=== PATIENT | male | born 1940 | race Caucasian/White ===

== ENCOUNTER 2021-05-02 23:10 | Emergency (ER) | payer MEDICARE, OTHER ==
[~2021-05-02] VITALS: Ht 185.4 cm; Wt 88.6 kg
[2021-05-02] MEDS ORDERED: ST. JOSEPH ASPI81 MG PO (23:23)
[2021-05-02] MEDS ORDERED: PRILOSEC OTC20 MG PO (23:23)
[2021-05-03 00:59] VITALS: BP 146/92
== END 2021-05-03 00:59 | disposition home or self-care (01) ==
LOC: ED 23:10
DX: M94.0 Chondrocostal junction syndrome [Tietze] (principal); K21.9 Gastro-esophageal reflux disease without esophagitis; Z79.899 Other long term (current) drug therapy

== ENCOUNTER 2021-06-15 10:03 | Emergency (ER) | payer MEDICARE, OTHER ==
[~2021-06-15] VITALS: Ht 185.4 cm; Wt 86.4 kg
[~2021-06-15 10:03] MED LIST: PRILOSEC OTC20 MG PO; ST. JOSEPH ASPI81 MG PO
[2021-06-15 11:34] LABS: BASO # 0.04 K/mm3 (0.02-0.10); EOS # 0.13 K/mm3 (0.04-0.40); EOS % 2.5 % (0.0-4.0); LYMPH# 0.87 K/mm3 (1.50-4.00); MEAN CELL VOLUME 102 fl (78-100); MEAN CORPUSCULAR HEMOGLOBIN 33 pg (27-31); MEAN CORPUSCULAR HGB CONC 32 g/dL (33-37); MEAN PLATELET VOLUME 10.3 fl (7.4-10.4); MONO # 0.48 K/mm3 (0.20-0.80); NEU # 3.63 K/mm3 (1.40-6.50); PLATELET COUNT 211 K/mm3 (130-400); RED CELL DISTRIBUTION WIDTH 12.7 % (11.5-14.5); WHITE BLOOD COUNT 5.2 K/mm3 (4.8-10.8)
[2021-06-15 11:48] LABS: ALBUMIN 4.2 g/dL (3.4-4.8); POTASSIUM 4.6 mmol/L (3.5-5.1); SODIUM 139 mmol/L (136-145)
[2021-06-15 11:49] LABS: CALCIUM 9.6 mg/dL (8.3-10.5)
[2021-06-15 11:50] LABS: GLUCOSE 122 mg/dL (75-110); TOTAL PROTEIN 7.3 g/dL (6.2-8.1)
[2021-06-15 11:52] LABS: CARBON DIOXIDE 22 mmol/L (23-31); PARTIAL THROMBOPLASTIN TIME 22.2 SECONDS (21.0-32.0); PROTHROMBIN TIME 10.4 SECONDS (9.0-12.0); TOTAL BILIRUBIN 0.9 mg/dL (0.2-1.2)
[2021-06-15 11:56] LABS: AST-SGOT 18 U/L (5-34)
[2021-06-15 11:57] LABS: ALT/SGPT 15 U/L (0-55)
[2021-06-15 12:08] LABS: TROPONIN-I < 0.03 ng/mL (<0.030)
[2021-06-15 13:35] VITALS: BP 133/76
== END 2021-06-15 13:35 | disposition short-term general hospital (02) ==
LOC: ED 10:03
PROVIDERS: Nurse Practitioner
DX: S06.5X0A Traumatic subdural hemorrhage without loss of consciousness, initial encounter (principal); N17.9 Acute kidney failure, unspecified; M62.81 Muscle weakness (generalized); W06.XXXA Fall from bed, initial encounter; W22.8XXA Striking against or struck by other objects, initial encounter
CPT/HCPCS: J7030